=== PATIENT | male | born 1940 | race Caucasian/White ===

== ENCOUNTER 2017-03-07 12:55 | Inpatient (IN) | payer OTHER ==
[~2017-03-07] VITALS: Ht 180.3 cm; Wt 90.0 kg
[2017-03-07 13:11] LABS: BASOPHIL % 0.5 % (0-2); PLATELET COUNT 220 x10^3mcL (130-400)
--- NOTE | 2017-03-07 13:24 | NUR ---
PT BROUGHT IN BY [facility] TO BE EVALUATED FOR THE COMPLAINT OF LEFT SIDED DULL-LIKE NON-RADIATING CONSTANT CHEST PAIN X 4 DAYS WHICH IS EXACERBATED WITH PALPATION BUT IS NOT UPON DEEP INSPIRATION. 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 VSS. PT AWAITING MEDICAL EVAL.
--- NOTE | 2017-03-07 13:32 | NUR ---
DR. STEVENS AT BEDSIDE FOR MEDICAL EVAL
[2017-03-07 13:48] LABS: CALCIUM 8.5 mg/dL (8.5-10.1); CARBON DIOXIDE 24.3 mmol/L (21-32); CHLORIDE SERUM 105 mmol/L (98-107); GLUCOSE SERUM 129 mg/dL (74-106); POTASSIUM SERUM 3.8 mmol/L (3.5-5.1); SODIUM SERUM 138 mmol/L (136-145)
--- NOTE | 2017-03-07 13:50 | NUR ---
PT RESETING IN A SEMI-FOWLERS POSITION IN LOW POSITIONED BED WITH SIDE RAILS UP X 2 AND CALL LIGHT WITHIN REACH.
[2017-03-07 13:52] LABS: ALBUMIN 3.6 g/dL (3.4-5.0); ALKALINE PHOSPHATASE 43 U/L (46-116); ALT/SGPT 25 U/L (16-63); AST/SGOT 14 U/L (15-37); BILIRUBIN TOTAL 0.4 mg/dL (0.20-1.00); TOTAL PROTEIN, SERUM 6.6 g/dL (6.4-8.2)
--- NOTE | 2017-03-07 14:54 | NUR ---
PT REQUESTING FOOD. DR. STEVENS NOTIFIED. PT OK'D FOR FOOD. PT GIVEN SANDWICH AND DIET DRINK. NO DISTRESS.
[2017-03-07] MEDS ORDERED: FLO4 PO (15:09)
[2017-03-07] MEDS ORDERED: ZETIA10 M1 PO (15:09)
[2017-03-07] MEDS ORDERED: AMITRIPTYLINE H75 MG PO (15:10)
[2017-03-07] MEDS ORDERED: MULTAQ400 MG PO (15:10)
[2017-03-07] MEDS ORDERED: NOR5 PO (15:11)
[2017-03-07] MEDS ORDERED: PRADAXA150 M1 PO (15:13)
[2017-03-07] MEDS ORDERED: CRESTOR5 M1 PO (15:14)
[2017-03-07] MEDS ORDERED: DIOVAN160 MG PO (15:15)
[2017-03-07] MEDS ORDERED: PAXIL10 MG (15:16)
--- NOTE | 2017-03-07 15:34 | NUR ---
RECEIVED PT FROM ED VIA [employer], CAME IN DUE TO CHEST PAIN. AAOX4. DENIES HEADACHE/DIZZINESS. NO SOB NOTED. C/O 3/10 LEFT SIDED CHEST PAIN, DESCRIBED INTERMITTENT AND BURNING. DENIES ABDOMINAL DISCOMFORT. BOWEL SOUNDS ACTIVE. IV SITE PATENT AND INTACT. SIDE RAILS UPX2. CALL LIGHT ON REACH. PRIMARY NURSE TAYLOR AT BEDSIDE
[2017-03-07 15:37] LABS: CHOLESTEROL/HDL RATIO 1.8; MAGNESIUM 2.2 mg/dL (1.8-2.4); PHOSPHOROUS 3.6 mg/dL (2.5-4.9)
[2017-03-07 15:43] VITALS: BP 108/60
[2017-03-07 15:48] LABS: FREE T4 0.81 ng/dL (0.76-1.46); FREE THYROXINE INDEX 2.1 ug/dL (1.4-4.5); T4(THYROXINE) 6.1 ug/dL (4.7-13.3)
[2017-03-07 15:49] VITALS: Ht 180.3 cm; Wt 90.0 kg
[2017-03-07 16:40] LABS: T3 TOTAL 0.96 ng/mL
[2017-03-07 17:54] VITALS: BP 110/63
--- NOTE | 2017-03-07 20:00 | NUR ---
RECEIVED PT IN BED, ALERT AND ORIENTED. DENIES HEADACHE/DIZZINESS. RESP. EVEN AND UNLABORED. LUNGS SOUNDS CLEAR BILAT. ON ROOM AIR, NO DISTRESS NOTED. AFEBRILE AND VITAL SIGNS STABLE. SR ON THE MONITOR, DENIES CP OR PRESSURE AT THIS TIME. IVF, NS AT 100ML/HR , INFUSING VIA LFA, SITE CLEAR.AMBULATORY. VOIDING FREELY. ASSISTED WITH HS CARE. CALL LIGHT WITHIN REACH. WILL CONTINUE TO MONITOR.
[2017-03-07 22:09] VITALS: BP 116/69
[2017-03-08] VITALS (7 sets, daily range): BP systolic 117–139; BP diastolic 71–80
--- NOTE | 2017-03-08 01:36 | NUR ---
RHYTHM CHANGED FROM SR TO FLUTTER FOR FEW SECONDS, PT DENIES CHEST PAIN OR PRESSURE. VITAL SIGNS CHECKED, B/P 135/74.MAP. 88, HR 51, SAT. 93% ON ROOM AIR. SR/SB AT THIS TIME. DR JIMÉNEZ MADE AWARE. STAT EKG ORDERED.WILL CONTINUE TO MONITOR.
--- NOTE | 2017-03-08 06:13 | NUR ---
AFEBRILE AND VITAL SIGNS STABLE. RESP. EVEN AND UNLABORED.ON ROOM AIR, DENIES CHEST PAIN OR ANY DISCOMFORT. SLEPT WELL. DUE MEDS GIVEN ORDERED, ZACARIAS. WELL. IVF INTACT AND INFUSING WELL, SITE CLEAR.SR/SB ON THE MONITOR. WILL CONTINUE TO MONITOR.
[2017-03-08 06:17] LABS: BASOPHIL % 0.5 % (0-2); PLATELET COUNT 200 x10^3mcL (130-400); RED CELL DISTRIBUTION WIDTH 14.4 % (11.5-14.5)
[2017-03-08 06:23] LABS: CALCIUM 8.6 mg/dL (8.5-10.1); CARBON DIOXIDE 26.9 mmol/L (21-32); CHLORIDE SERUM 108 mmol/L (98-107); GLUCOSE SERUM 97 mg/dL (74-106); MAGNESIUM 2.1 mg/dL (1.8-2.4); PHOSPHOROUS 3.3 mg/dL (2.5-4.9); POTASSIUM SERUM 4.6 mmol/L (3.5-5.1); SODIUM SERUM 141 mmol/L (136-145)
--- NOTE | 2017-03-08 15:00 | NUR ---
DR OCAMPO CAME AND SAW PT,DISCUSSED HEALTH CONDITION AND PLAN OF CARE INCLUDING POSSIBLE DC IN AM.
--- NOTE | 2017-03-08 20:02 | NUR ---
RECEIVED PT IN BED, RESTING QUIETLY. ALERT AND ORIENTED. DENIES HEADACHE /DIZZINESS. RESP. EVEN AND UNLABORED. ON ROOM AIR, NO DISTRESS NOTED. SR/SB ON THE MONITOR. DENIES CHEST PAIN OR PRESSURE. AFEBRILE AND VITAL SIGNS STABLE. IVF, NS AT 100ML/HR, INTACT AND INFUSING VIA LFA, SITE CLEAR. AMBULATORY. VOIDING FREELY. CALL LIGHT WITHIN REACH. WILL CONTINUE TO MONITOR.
--- NOTE | 2017-03-09 00:48 | NUR ---
SLEEPING, EASILY AROUSABLE. SR/SB ON THE MONITOR. NO DISTRESS NOTED. WILL CONTINUE TO MONITOR.
[2017-03-09 05:37] VITALS: BP 124/79
[2017-03-09] MEDS ORDERED: ECO81 PO (06:22)
[2017-03-09 06:24] LABS: BASOPHIL % 0.3 % (0-2); PLATELET COUNT 201 x10^3mcL (130-400); RED CELL DISTRIBUTION WIDTH 13.9 % (11.5-14.5)
--- NOTE | 2017-03-09 06:25 | NUR ---
SLEPT WELL. NO SIGNIFICANT CHANGE NOTED.DENIES CHEST PAIN OR ANY DISCOMFORT. AFEBRILE AND VITAL SIGNS STABLE. RESP. EVEN AND UNLABORED.NO DISTRESS NOTED.DUE MEDS GIVEN ORDERED, ZACARIAS. WELL. IVF INTACT AND INFUSING WELL, SITE CLEAR. KEPT COMFORTABLE. WILL ENDORSE TO INCOMING NURSE.
[2017-03-09 06:31] LABS: CALCIUM 8.7 mg/dL (8.5-10.1); CARBON DIOXIDE 30.2 mmol/L (21-32); CHLORIDE SERUM 107 mmol/L (98-107); CREATININE SERUM 0.9 mg/dL (0.7-1.3); GLUCOSE SERUM 106 mg/dL (74-106); POTASSIUM SERUM 4.3 mmol/L (3.5-5.1); SODIUM SERUM 143 mmol/L (136-145)
[2017-03-09 09:37] VITALS: BP 137/76
[2017-03-09 09:53] VITALS: BP 137/76
--- NOTE | 2017-03-09 10:18 | NUR ---
AAO TIMES 4. TELE # 25 SR. VS'S STABLE. NO SOB. O2 SAT ON RA 96%. BS'S ACTIVE TIMES 4. MATHEWS STRONG. BRP WITHOUT DIFFICULTY. NO C/O PAIN. PERIPHERAL PULSES PALPABLE. NO EDEMA. SCD BLE.
--- NOTE | 2017-03-09 10:37 | NUR ---
GAVE PT DISCHARGE INSTRUCTIONS AND PRESCRIPTION WAS SENT SUCCESSFULLY TO THE PHARMACY. DC'D THE SL ANGIO INTACT. PT VERBALIZED "I UNDERSTAND" TO INSTRUCTIONS.
== END 2017-03-09 10:40 | disposition home or self-care (01) | DRG 392 ==
LOC: ED 12:55 → DU 15:02
PROVIDERS: ADMIT Family Medicine
DX: K21.9 Gastro-esophageal reflux disease without esophagitis (principal); I42.9 Cardiomyopathy, unspecified; I48.0 Paroxysmal atrial fibrillation; R73.03 Prediabetes; I10 Essential (primary) hypertension; E78.5 Hyperlipidemia, unspecified; F41.9 Anxiety disorder, unspecified; N40.0 Benign prostatic hyperplasia without lower urinary tract symptoms; Z79.82 Long term (current) use of aspirin; Z68.27 Body mass index [BMI] 27.0-27.9, adult; Z87.891 Personal history of nicotine dependence; Z86.73 Personal history of transient ischemic attack (TIA), and cerebral infarction without residual deficits
CPT/HCPCS: 83880; 84439; J7030; J7040

== ENCOUNTER 2019-06-10 13:35 | Inpatient (IN) | payer OTHER, BC ==
[~2019-06-10] VITALS: Ht 177.8 cm; Wt 90.3 kg
[~2019-06-10 13:35] MED LIST: AMITRIPTYLINE H75 MG PO; CRESTOR5 M1 PO; DIOVAN160 MG PO; ECO81 PO; FLO4 PO; MULTAQ400 MG PO; NOR5 PO; PAXIL10 MG; PRADAXA150 M1 PO; ZETIA10 M1 PO
[2019-06-10 13:38] VITALS: Ht 177.8 cm; Wt 90.3 kg
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
[2019-06-10 14:18] LABS: BASOPHIL % 0.3 % (0-2); PLATELET COUNT 229 x10^3mcL (130-400); RED CELL DISTRIBUTION WIDTH 14.3 % (11.5-14.5)
[2019-06-10 14:34] LABS: CALCIUM 8.9 mg/dL (8.5-10.1); CHLORIDE SERUM 105 mmol/L (98-107); GLUCOSE SERUM 110 mg/dL (74-106); POTASSIUM SERUM 4.5 mmol/L (3.5-5.1); SODIUM SERUM 140 mmol/L (136-145)
[2019-06-10 14:39] LABS: ALBUMIN 4.1 g/dL (3.4-5.0); ALKALINE PHOSPHATASE 41 U/L (46-116); ALT/SGPT 26 U/L (16-63); AST/SGOT 17 U/L (15-37); BILIRUBIN TOTAL 0.6 mg/dL (0.20-1.00); TOTAL PROTEIN, SERUM 7.5 g/dL (6.4-8.2)
--- NOTE | 2019-06-10 14:48 | NUR ---
PT IV ACCESS ESTABLISHED AND MEDICATED PER MD ORDER. PT VERBALIZED UNDERSTANDING OF MEDICATION PRIOR TO ADMINISTRATION. PT HAS CALL LIGHT WITHIN REACH.
[2019-06-10] MEDS ORDERED: MAG PO (15:37)
[2019-06-10] MEDS ORDERED: FLO4 PO (15:39)
[2019-06-10] MEDS ORDERED: PROSCAR5 MG PO (15:40)
[2019-06-10] MEDS ORDERED: NORTRIPTYLINE H10 MG PO (15:41)
[2019-06-10] MEDS ORDERED: ELIQUIS2.5 MG PO (15:42)
--- NOTE | 2019-06-10 15:45 | NUR ---
PT REPORTS PAIN CONTINUES TO BE 3/10. PT VERBALIZED UNDERSTANDING OF PLAN OF CARE FOR ADMISSION. AT BEDSIDE.
--- NOTE | 2019-06-10 16:25 | NUR ---
REPORT CALLED TO [facility].
--- NOTE | 2019-06-10 16:36 | NUR ---
PT TRANSPORTED TO TELE AT THIS TIME BY EMT BERTHA AND RN NELA. PT IS AWAKE AND ALERT, RESP E/U, NAD NOTED. ACCOMPANIED BY . NAD NOTED UPON LEAVING ED.
--- NOTE | 2019-06-10 16:40 | NUR ---
RECEIVED PT [employer]IA [employer] FROM E/D, ACCOMPANIED BY RN, TRANSPORTER, AND PT'S , AMARA TAPIA. PT A/A/O X 4, CALM, COOPERATIVE; WEARS GLASSES (W/ PT); [place] BOTH EARS, WEARS HEARING AIDS (NOT W/ PT). AMBULATORY, NO GAIT OR BALANCE IMPAIRMENT NOTED WHEN WALKING FROM GUERNEY TO BED. ON TELE # 3, HR 61, NSR, STATES CHRONIC CHEST DISCOMFORT TO LEFT SIDE 11/19. NO ACUTE RESPIRATORY DISTRESS NOTED. ABD SOFT, ROUND, NON-TENDER, HYPERACTIVE BOWEL SOUNDS X 4 QUADS (PT IS HUNGRY), LAST BM 06/10/19, FORMED. IV SITE RAC 20G, CDI. ORIENTED PT TO ROOM, BED CONTROLS, CALL LIGHT SYSTEM. SIDE RAILS UP X 2, BED IN LOW POSITION. WILL ENDORSE TO QASIM MILNER.
[2019-06-10 16:41] LABS: FREE T4 0.88 ng/dL (0.76-1.46); FREE THYROXINE INDEX 2.3 ug/dL (1.4-4.5); T3 TOTAL 0.88 ng/mL
[2019-06-10 17:02] VITALS: BP 147/85
--- NOTE | 2019-06-10 18:04 | NUR ---
TELE#3 SR W/ PVC'S. NO C/O CHEST PAIN NOW. IVF OF NS 100CC/HR TO RAC. PATIENT VOID 425CC OF YELLOW URINE. URINE SPECIMEN COLLECTED AND SENT. PATIENT HAD FORMED BM X1. TOLERATED CARDIAC DINNER. CALL LIGHT IN REACH. ENDORSED CARE TO NOC NURSE.
[2019-06-10 19:09] LABS: microscopic required? NO
[2019-06-10 19:19] LABS: urine erythrocyte NEGATIVE (NEGATIVE)
--- NOTE | 2019-06-10 19:22 | NUR ---
RECEIVED PATIENT IN BED AWAKE, ALERT AND ORIENTED WITH NO SIGN OF ACUTE DISTRESS. BREATHING EASY AND NONLABOR SATTING AT 97% RA. TELE#3 NSR WITH OCASSIONAL PVC ON MONITOR, DENIES CHESTPAIN AT THIS TIME. IV TO RAC INTACT AND INFUSING WELL. WILL CONTINUE TO MONITOR.
[2019-06-10 19:26] LABS: AMPHETAMINE QUAL UR NONE DETECTED (See below)
[2019-06-10 21:04] VITALS: BP 106/62
--- NOTE | 2019-06-10 23:46 | NUR ---
APPEAR TO BE SLEEPING AT THIS TIME, NO INDICATION OF CHEST DISCOMFORT NOTED. WILL CONTINUE TO MONITOR.
[2019-06-11 05:32] VITALS: BP 128/78
[2019-06-11 06:48] LABS: PLATELET COUNT 198 x10^3mcL (130-400); RED CELL DISTRIBUTION WIDTH 14.4 % (11.5-14.5)
--- NOTE | 2019-06-11 07:26 | NUR ---
RECEIVED HAND OFF REPORT FROM NIGHT NURSE, PATIENT FOUND TO BE AWAKE AND ALERT, NO COMPLAINTS OF PAIN OR DISCOMFORT. TELE #[address] ON PATIEN SHOWING NSR. PATIENT STATED HE SLEPT WELL THROUGH THE NIGHT. ORIENTED PATIENT TO CALL LIGHT SYSTEM AND INSTRUCTED TO CALL IF NEEDING ASSISTANCE.
--- NOTE | 2019-06-11 07:31 | NUR ---
RECEIVED HAND OFF REPORT FROM NIGHT NURSE, PATIENT FOUND TO BE AWAKE AND ALERT, NO COMPLAINTS OF PAIN OR DISCOMFORT. TELE #[address] ON PATIEN SHOWING NSR. PATIENT STATED HE SLEPT WELL THROUGH THE NIGHT. ORIENTED PATIENT TO CALL LIGHT SYSTEM AND INSTRUCTED TO CALL IF NEEDING ASSISTANCE.
[2019-06-11 08:56] VITALS: BP 147/81
--- NOTE | 2019-06-11 09:24 | NUR ---
DR BOLTON AND TEAM ROUNDED ON PATIENT, UPDATED PATIENT ON PLAN OF CARE. AWAITING DR DELANEY CONSULT. PENDING ECHOCARDIOGRAM. PATIENT BLOOD PRESSURE WNL ADMINISTERED MEDICATIONS PER DEC. PATIENT REFUSED COLACE. CALL LIGHT WITHIN REACH, WILL CONTINUE TO MONITOR
[2019-06-11 11:01] LABS: CALCIUM 8.4 mg/dL (8.5-10.1); CARBON DIOXIDE 24.8 mmol/L (21-32); CHLORIDE SERUM 107 mmol/L (98-107); GLUCOSE SERUM 91 mg/dL (74-106); MAGNESIUM 2.4 mg/dL (1.8-2.4); PHOSPHOROUS 3.6 mg/dL (2.5-4.9); POTASSIUM SERUM 4.1 mmol/L (3.5-5.1); SODIUM SERUM 142 mmol/L (136-145)
[2019-06-11 13:36] VITALS: BP 128/77
[2019-06-11 17:38] VITALS: BP 122/72
--- NOTE | 2019-06-11 19:20 | NUR ---
RECEIVED PT LAYING IN BED, NO ACUTE DISTRESS OBSERVED. DENIES PAIN OR DISCOMFORT AT THIS TIME. AA/OX4, ABLE TO MAKE NEEDS KNOWN. MED-SURG, NO TELE, DENIES CP OR PRESSURE. PULSES PRESENT AND EQUAL THROUGHOUT, NO EDEMA NOTED. BREATHING ON RA, EVEN AND UNLABORED, NO SOB OR DYSPNEA OBSERVED. ABD ROUND AND SOFT, NONTENDER, NO N/V/D. FREELY VOIDS URINE WITH BRP. AMBULATORY AND ABLE TO REPOSITION SELF IN BED. IV TO LFA IN PLACE, DRY, PATENT, INTACT AND INFUSING IVF WELL, NO S&S OF PHLEBITIS OR INFILTRATION NOTED. COMFORT AND SAFETY MEASURES IN PLACE. ALL NEEDS ASSESSED AND ATTENDED TO. CALL LIGHT WITHIN REACH. WILL CONTINUE TO MONITOR
[2019-06-11 21:02] VITALS: BP 114/65
--- NOTE | 2019-06-12 05:32 | NUR ---
NO SIGNIFICANT CHANGES TO REPORT, PT COMPLIED WITH NURSING CARE THROUGHOUT THE SHIFT WITH NO ACUTE EVENTS OVERNIGHT. NO ACUTE DISTRESS OBSERVED AT THIS TIME, PT LAYING IN BED, BREATHING EVEN AND UNLABORED. COMFORT AND SAFETY MEASURES MAINTAINED. ALL NEEDS ASSESSED AND ATTENDED TO. CALL LIGHT WITHIN REACH. WILL CONTINUE TO MONITOR AND ENDORSE CARE TO DAY SHIFT NURSE
[2019-06-12 05:43] VITALS: BP 112/76
[2019-06-12 07:06] LABS: BASOPHIL % 0.3 % (0-2); PLATELET COUNT 210 x10^3mcL (130-400)
--- NOTE | 2019-06-12 07:10 | NUR ---
RECEIVED PT FROM KULWINDER MAGANA. PT FOUND RESTING IN BED WITH BOTH EYES CLOSED. NO S/S OF PAIN. MED-SURG. NO SOB ON ROOM AIR. IV WNL TO LFA, NO REDNESS, NO SWELLING, NO INFILTRATION. PATENT. IV FLUIDS FLOWING. FLUSHES WELL. CALM AT THIS TIME. BED IN LOW POSITION. CALL LIGHT WITHIN REACH. WILL CONTINUE TO MONITOR.
[2019-06-12 07:14] LABS: CALCIUM 8.4 mg/dL (8.5-10.1); CARBON DIOXIDE 29.6 mmol/L (21-32); CHLORIDE SERUM 107 mmol/L (98-107); GLUCOSE SERUM 95 mg/dL (74-106); MAGNESIUM 2.2 mg/dL (1.8-2.4); PHOSPHOROUS 3.7 mg/dL (2.5-4.9); POTASSIUM SERUM 4.1 mmol/L (3.5-5.1); RED CELL DISTRIBUTION WIDTH 14.8 % (11.5-14.5); SODIUM SERUM 142 mmol/L (136-145)
[2019-06-12 08:50] VITALS: BP 125/70
[2019-06-12 11:23] VITALS: BP 125/70
--- NOTE | 2019-06-12 11:37 | NUR ---
PT FOUND RESTING IN BED WITH BOTH EYES CLOSED. NO S/S OF ACUTE DISTRESS. NO S/S OF PAIN. NO S/S OF CHEST PAIN. RR EVEN/UNLABORED. CALM/COOPERATIVE. BED IN LOW POSITION. CALL LIGHT WITHIN REACH. WILL CONTINUE TO MONITOR. SIDE RAILS UP X2.
--- NOTE | 2019-06-12 13:11 | NUR ---
PT BEING DISCHARGED TO HOME. AWAKE, ALERT, ORIENTED X4. DENIES CHEST PAIN. NO SOB ON ROOM AIR. NO S/S OF ACUTE DISTRESS. NO N/V. NO FEVER. NO CHILLS. NO POWELL. NO DIZZINESS. DISCHARGE EDUCATION PROVIDED TO PATIENT. INSTRUCTED TO FOLLOW UP WITH PCP/OPERATER. PT VERBALIZED UNDERSTANDING. BELONGINGS WITH PATIENT. IV REMOVED FROM LFA, CATHETER IN TACT. PRESSURE APPLIED. SITE WNL.
== END 2019-06-12 13:15 | disposition home or self-care (01) | DRG 206 ==
LOC: ED 13:35 → MU 16:00 → DU 16:00 → MU 06-11 14:14
PROVIDERS: Emergency Medicine; ADMIT Internal Medicine
DX: M94.0 Chondrocostal junction syndrome [Tietze] (principal); I48.0 Paroxysmal atrial fibrillation; R73.03 Prediabetes; I10 Essential (primary) hypertension; N40.0 Benign prostatic hyperplasia without lower urinary tract symptoms; F41.9 Anxiety disorder, unspecified; E78.5 Hyperlipidemia, unspecified; Z68.28 Body mass index [BMI] 28.0-28.9, adult; Z79.82 Long term (current) use of aspirin; Z79.01 Long term (current) use of anticoagulants; Z86.73 Personal history of transient ischemic attack (TIA), and cerebral infarction without residual deficits; K21.9 Gastro-esophageal reflux disease without esophagitis
CPT/HCPCS: 83880; 84439; G0378; J7030; Q0092

== ENCOUNTER 2019-09-02 10:24 | Emergency (ER) | payer OTHER, BC ==
[~2019-09-02] VITALS: Ht 177.8 cm; Wt 81.6 kg
[~2019-09-02 10:24] MED LIST changes: +ELIQUIS2.5 MG PO; +MAG PO; +NORTRIPTYLINE H10 MG PO; +PROSCAR5 MG PO
[2019-09-02 10:27] VITALS: Ht 177.8 cm; Wt 81.6 kg
[2019-09-02] MEDS ORDERED: MULTAQ400 MG PO (10:45)
[2019-09-02] MEDS ORDERED: MAG (10:51)
[2019-09-02] MEDS ORDERED: CRESTOR5 M1 PO (10:52)
[2019-09-02 11:11] LABS: CALCIUM 8.8 mg/dL (8.5-10.1); CARBON DIOXIDE 27.3 mmol/L (21-32); CHLORIDE SERUM 104 mmol/L (98-107); GLUCOSE SERUM 114 mg/dL (74-106); POTASSIUM SERUM 4.5 mmol/L (3.5-5.1); SODIUM SERUM 140 mmol/L (136-145)
[2019-09-02 11:16] LABS: ALBUMIN 3.8 g/dL (3.4-5.0); ALKALINE PHOSPHATASE 48 U/L (46-116); ALT/SGPT 24 U/L (16-63); AST/SGOT 14 U/L (15-37); BILIRUBIN TOTAL 0.8 mg/dL (0.20-1.00); TOTAL PROTEIN, SERUM 7.1 g/dL (6.4-8.2)
[2019-09-02 11:18] LABS: BASOPHIL % 0.2 % (0-2); PLATELET COUNT 242 x10^3mcL (130-400); RED CELL DISTRIBUTION WIDTH 14.1 % (11.5-14.5)
[2019-09-02 14:00] VITALS: BP 128/82
== END 2019-09-02 14:00 | disposition home or self-care (01) ==
LOC: ED 10:24
PROVIDERS: Emergency Medicine
DX: R07.89 Other chest pain (principal); R00.2 Palpitations; I10 Essential (primary) hypertension; E78.00 Pure hypercholesterolemia, unspecified; F41.9 Anxiety disorder, unspecified; I48.91 Unspecified atrial fibrillation; Z86.73 Personal history of transient ischemic attack (TIA), and cerebral infarction without residual deficits
CPT/HCPCS: 36415; Q0092